=== PATIENT | female | born 2005 | race Two or more races ===

== ENCOUNTER 2025-04-02 19:34 | Emergency (ER) | payer OTHER ==
[~2025-04-02] VITALS: Ht 165.1 cm; Wt 54.4 kg
[2025-04-02] MEDS ORDERED: DOXYCYCLINE HYCLATE 100MG IV STA (22:20)
[2025-04-02] MEDS ORDERED: CEFTRIAXONE SODIUM 500 MG VIAL IV STA (22:20)
[2025-04-02 22:29] LABS: BASO % 0.6 % (0.1-1.2); EOS # 0.08 (0.04-0.54); EOS % 0.8 % (0.7-7.0); LYMPH # 2.74 (1.18-3.74); LYMPH % 26.7 % (19.3-53.1); MEAN PLATELET VOLUME 11.20 fl (9.4-12.4); MONO # 0.80 (0.24-0.82); MONO % 7.8 % (4.7-12.5); NEUT # 6.55 (1.56-6.13); NEUT % 63.8 % (34.0-71.1); RED CELL DISTRIBUTION WIDTH 12.5 % (11.6-14.4)
[2025-04-02] MEDS ORDERED: ELVITEG/COB/EMTRI/TENOFO DISOP 1 UDTAB TABLET PO ONE (22:30)
[2025-04-02] MEDS ORDERED: FF) NORGESTREL-ETHINYL ESTRADIOL TAB PO STA (22:38)
[2025-04-02 22:49] LABS: COCAINE NEGATIVE (NEGATIVE); METHADONE NEGATIVE (NEGATIVE); OPIATES NEGATIVE (NEGATIVE); THC ( Cannabinoids) NEGATIVE (NEGATIVE)
[2025-04-02 22:51] LABS: ALT/SGPT 19.0 U/L (12-78); AST/SGOT 24.0 U/L (15-37); BILIRUBIN TOTAL 0.57 mg/dL (0.3-1.2); BUN CREA RATIO 13.0 (7.0-25.0); CREATININE SERUM 0.78 mg/dL (0.55-1.02); GFR 94.16; GLOBULINA 3.5 G/DL (2.4-3.5); GLUCOSE FASTING 90.0 mg/dL (65-100); OSMOLALITY SERUM 282.0 MOSM/KG (275-295)
[2025-04-03] MEDS ORDERED: FAMOTIDINE/PF 20 MG/2 ML VIAL IV PUSH STA (06:46)
[2025-04-03] MEDS ORDERED: ONDANSETRON HCL 2 MG/ML VIAL IV STA (06:46)
[2025-04-04 05:09] LABS: hav igm Negative (Negative); hep b c Negative (Negative); hep b s ag Negative (Negative)
== END 2025-04-03 07:39 | disposition home or self-care (01) ==
LOC: ER 19:34 → EMR PED 19:34
DX: T74.21XA Adult sexual abuse, confirmed, initial encounter (principal)